=== PATIENT | female | born 1985 | race Caucasian/White ===

== ENCOUNTER 2018-05-11 12:37 | Emergency (ER) | payer MEDICAID, OTHER ==
[~2018-05-11] VITALS: Ht 167.6 cm; Wt 109.1 kg
[~2018-05-11 12:37] MED LIST: DIAZ-351 PO
[2018-05-11 13:00] VITALS: BP 161/96
[2018-05-11] MEDS ORDERED: ketorolac trometh inj. 60 MG/2 ML VIAL IM ONE (14:20)
[2018-05-11] MEDS ORDERED: cyclobenzaprine 10mg tablet PO ONE (14:20)
[2018-05-11] MEDS ORDERED: HYDROcodone/acetaminophen 5mg/325mg tablet PO ONE (14:20)
[2018-05-11] MEDS ORDERED: triamcinolone acetonide 40mg/ml inj IM ONE (14:20)
[2018-05-11] MEDS ORDERED: NAPR-56 PO (14:21)
[2018-05-11] MEDS ORDERED: CYCL-1 PO (14:21)
== END 2018-05-11 14:40 | disposition home or self-care (01) ==
LOC: ER 12:37
DX: M41.9 Scoliosis, unspecified (principal); M54.6 Pain in thoracic spine; Z79.899 Other long term (current) drug therapy
CPT/HCPCS: 72070; 96372; 99283; J1885; J3301

== ENCOUNTER 2020-08-12 22:34 | Emergency (ER) | payer SELFPAY ==
[~2020-08-12] VITALS: Ht 160 cm; Wt 93.0 kg
[~2020-08-12 22:34] MED LIST changes: +CYCL-1 PO
[2020-08-12 22:41] VITALS: BP 130/89
[2020-08-13 00:34] LABS: BASOPHILS % (AUTO) 0.5 % (0-1); EOSINOPHILS % (AUTO) 0.5 % (0-6); HEMATOCRIT 35.2 % (35.0-45.0); HEMOGLOBIN 11.8 g/dl (12.0-16.0); LYMPHOCYTES # (AUTO) 0.9 X10'3 (1.1-4.8); LYMPHOCYTES % (AUTO) 14.3 % (21-51); MEAN CORPUSCULAR HEMOGLOBIN 33.6 PG (27.0-31.0); MEAN CORPUSCULAR HGB CONC 33.6 g/dL (33.0-36.5); MEAN CORPUSCULAR VOLUME 99.9 FL (78-98); MEAN PLATELET VOLUME 8.7 FL (7.4-10.4); MONOCYTES # (AUTO) 0.6 X10'3 (0-0.9); MONOCYTES % (AUTO) 8.6 % (2-12); NEUTROPHILS # (AUTO) 4.9 X10'3 (1.8-7.7); NEUTROPHILS % (AUTO) 76.1 % (42-75); PLATELET COUNT 319 X10'3 (140-440); RED BLOOD COUNT 3.52 X10'6 (4.20-5.60); RED CELL DISTRIBUTION WIDTH 19.9 % (11.5-14.5); WHITE BLOOD COUNT 6.4 X10'3 (4.5-11.0)
[2020-08-13 00:44] LABS: ALANINE AMINOTRANSFERASE 106 U/L (12-78); ALBUMIN 3.6 G/DL (3.4-5.0); ALBUMIN/GLOBULIN RATIO 0.8 (1.1-1.5); ALKALINE PHOSPHATASE 196 IU/L (46-116); ANION GAP 11 (8-16); ASPARTATE AMINO TRANSFERASE 215 U/L (10-37); BILIRUBIN,TOTAL 0.9 MG/DL (0.1-1.0); BLOOD UREA NITROGEN 13 MG/DL (7-18); BUN/CREATININE RATIO 15.1 (6.6-38.0); CALCIUM 9.3 MG/DL (8.5-10.1); CHLORIDE 99 MMOL/L (99-107); CREATININE 0.86 MG/DL (0.40-0.90); GLUCOSE 103 MG/DL (70-104); LIPASE 267 U/L (73-393); POTASSIUM 4.3 MMOL/L (3.5-5.1); SODIUM 138 MMOL/L (135-145); TOTAL CARBON DIOXIDE 27.9 MMOL/L (24-32); TOTAL PROTEIN 8.2 G/DL (6.4-8.2); eGFR 74 ML/MIN
[2020-08-13 00:54] LABS: URINE HCG NEGATIVE (NEG)
[2020-08-13 00:55] LABS: CLARITY,URINE CLEAR (Clear); COLOR,URINE YELLOW (Yellow); GLUCOSE, URINE NEGATIVE (Neg); KETONES,URINE TRACE mg/dl (Neg); LEUKOCYTE ESTERASE ,URINE NEGATIVE (Neg); NITRITES, URINE NEGATIVE (Neg); OCCULT BLOOD,URINE NEGATIVE (Neg); PROTEIN,URINE TRACE mg/dl (Neg)
[2020-08-13 00:59] LABS: UA COLLECTION TYPE CLN CATCH MIDSTREAM
[2020-08-13 01:02] LABS: WBC,URINE 0-4 /HPF (0-4)
[2020-08-13 01:03] LABS: BACTERIA,URINE 2+ /HPF (Neg); MUCUS STRANDS MODERATE /LPF (Neg); RBC,URINE 0-2 /HPF (0-2); SQUAMOUS EPITHELIAL CELL,UR MODERATE /LPF (FEW)
[2020-08-13 01:26] LABS: ANISOCYTOSIS 2+; MICROCYTOSIS 1+; PLATELET ESTIMATE NORMAL
== END 2020-08-13 01:26 | disposition home or self-care (01) ==
LOC: ER 22:35
DX: R10.30 Lower abdominal pain, unspecified (principal); R10.2 Pelvic and perineal pain; M54.5 Low back pain; Z72.89 Other problems related to lifestyle; Z79.899 Other long term (current) drug therapy
CPT/HCPCS: 36415; 80053; 81001; 81025; 83690; 85008; 85025; 99283